=== PATIENT | female | born 1990 | race Caucasian/White ===

== ENCOUNTER 2017-01-18 11:23 | Emergency (ER) | payer MEDICAID ==
[2017-01-18] MEDS ORDERED: SULFAMETH/TRIMETH DS 800/160 MG TABLET PO STA (12:45)
[2017-01-18] MEDS ORDERED: PHENAZOPYRIDINE 100 MG TABLET PO STA (12:45)
[2017-01-18] MEDS ORDERED: SULFAMETH/TRIMETH DS 800/160 MG TABLET PO ONE (12:55)
[2017-01-18] MEDS ORDERED: PHENAZOPYRIDINE 100 MG TABLET PO ONE (12:55)
== END 2017-01-18 13:01 | disposition home or self-care (01) ==
DX: N12 Tubulo-interstitial nephritis, not specified as acute or chronic (principal); R03.0 Elevated blood-pressure reading, without diagnosis of hypertension
CPT/HCPCS: 81001; 81025; 87077; 87086; 87181; 99283; A9270

== ENCOUNTER 2017-08-04 10:04 | Emergency (ER) | payer MEDICAID ==
[2017-08-04 10:11] VITALS: BP 107/72
== END 2017-08-04 10:29 | disposition left against medical advice (07) ==
LOC: ED 10:04
DX: Z53.21 Procedure and treatment not carried out due to patient leaving prior to being seen by health care provider (principal)

== ENCOUNTER 2017-12-09 10:12 | Emergency (ER) | payer MEDICAID ==
[2017-12-09] MEDS ORDERED: SODIUM CHLORIDE 0.9% 1,000 ML IV ONE ×2 (10:43→11:28)
[2017-12-09] MEDS ORDERED: ONDANSETRON 4 MG/2 ML VIAL IVP STA (10:44)
[2017-12-09 10:52] LABS: BASOPHILS # (AUTO) 0.1 10^3/uL (0.0-0.1); EOSINOPHILS # (AUTO) 0.1 10^3/uL (0.0-0.7); EOSINOPHILS % (AUTO) 1.5 %; HGB - HEMOGLOBIN 13.9 g/dL (12.0-16.0); LYMPHOCYTES # (AUTO) 2.5 10^3/uL (1.5-3.5); MEAN CORPUSCULAR HEMOGLOBIN 31.6 pg (27.0-31.0); MEAN CORPUSCULAR HGB CONC 33.9 g/dL (32.0-36.0); MEAN CORPUSCULAR VOLUME 93.3 fL (81.0-99.0); MEAN PLATELET VOLUME 7.5 fL (7.9-10.8); MONOCYTES # (AUTO) 0.5 10^3/uL (0.0-1.0); MONOCYTES % (AUTO) 7.5 %; NEUTROPHILS # (AUTO) 3.7 10^3/uL (1.5-6.6); PLT - PLATELET COUNT 323 10^3/uL (130-450); WHITE BLOOD COUNT 6.8 x10^3/uL (4.8-10.8)
[2017-12-09 11:03] LABS: ALBUMIN 4.7 g/dL (3.2-5.5); ALBUMIN/GLOBULIN RATIO 1.4 (1.0-2.2); BILIRUBIN,TOTAL 0.5 mg/dL (0.2-1.0); CALCIUM 8.8 mg/dL (8.5-10.3); CREATININE 0.8 mg/dL (0.4-1.0)
[2017-12-09] MEDS ORDERED: PROMETHAZINE INJ 12.5 MG in SODIUM CHLORIDE 0.9% 50 ML IV STA (11:29)
--- NOTE | 2017-12-09 11:31 | ED Physician Documentation ---
PD HPI ABD PAIN - Stated complaint Stated Complaint: VOMITING - Chief complaint Chief Complaint: Abd Pain - History obtained from History obtained from: Patient - History of Present Illness Timing - onset: How many hours ago (2) Timing - details: Still present Quality: Cramping Location: All over / everywhere Associated symptoms: Nausea, Vomiting. No: Fever, Diarrhea, Dysuria Similar symptoms before: Has not had sx before - Additional information Additional information: The patient is a 27-year-old female who presents with vomiting and dry heaves that started after she arrived at work today. She was well last night and when she initially got up this morning. She reports generalized abdominal cramping pain. She denies diarrhea, fever, or dysuria. She has an IUD, and has not had a menstrual period for many years. She denies history of similar symptoms in the past. She has had no abdominal surgery. Review of Systems Constitutional: denies: Fever Ears: denies: Tinnitus/ringing Nose: denies: Congestion Throat: denies: Sore throat Cardiac: denies: Chest pain / pressure Respiratory: denies: Dyspnea, Cough GI: reports: Abdominal Pain, Nausea, Vomiting. denies: Diarrhea : reports: Control (IUD). denies: Dysuria Skin: denies: Rash Musculoskeletal: denies: Back pain Neurologic: denies: Focal weakness, Numbness, Headache PD PAST MEDICAL HISTORY - Past Medical History Cardiovascular: None Respiratory: None Neuro: None Endocrine/Autoimmune: None GI: None [employer]ES [employer]: None : None HEENT: None Psych: Depression, Anxiety Musculoskeletal: None Derm: None - Past Surgical History Past Surgical History: No - Present Medications Home Medications: Ambulatory Orders Medication Instructions Recorded Confirmed Promethazine [Phenergan] 25 - 50 mg PO Q6H PRN #10 tab 12/09/17 - Allergies Allergies/Adverse Reactions: Allergies Allergy/AdvReac Type Severity Reaction Status Date / Time No Known Drug Allergies Allergy Verified 12/09/17 10:21 - Social History Does the pt smoke?: No Smoking Status: Never smoker Does the pt drink ETOH?: No Does the pt have substance abuse?: No - Immunizations Immunizations are current?: Yes - POLST Patient has POLST: No PD ED PE NORMAL - Vitals Vital signs reviewed: Yes (Normal) - General General: Alert and oriented X 3, Well developed/nourished, Other (Dry heaving into an emesis bag when I enter the room.) - HEENT HEENT: Atraumatic, Moist mucous membranes, Pharynx benign - Neck Neck: Supple, no meningeal sign, No adenopathy - Cardiac Cardiac: RRR, No murmur - Respiratory Respiratory: No respiratory distress, Clear bilaterally - Abdomen Abdomen: Soft, No organomegaly, Other (Mild tenderness to palpation in the upper abdomen, without rebound tenderness or guarding.) - Back Back: No CVA TTP - Derm Derm: No rash - Extremities Extremities: No edema, No calf tenderness / cord - Neuro Neuro: Alert and oriented X 3, No motor deficit, No sensory deficit Results - Vitals Vitals: Vital Signs - 24 hr 12/09/17 12/09/17 12/09/17 10:18 12:19 14:13 Temperature 36.2 C L 38 C H Heart Rate 86 72 81 Respiratory 19 16 18 Rate Blood Pressure 105/71 100/64 100/68 O2 Saturation 99 100 97 12/09/17 15:23 Temperature Heart Rate 74 Respiratory 18 Rate Blood Pressure 110/68 O2 Saturation 98 Oxygen O2 Source Room air - Labs Labs: Laboratory Tests 12/09/17 12/09/17 12/09/17 10:30 10:30 13:35 WBC 6.8 RBC 4.40 Hgb 13.9 Hct 41.1 MCV 93.3 MCH 31.6 H MCHC 33.9 RDW 13.0 Plt Count 323 MPV 7.5 L Neut # 3.7 Lymph # 2.5 Sutter # 0.5 Eos # 0.1 Baso # 0.1 Absolute Nucleated RBC 0.01 Nucleated RBC % 0.1 Sodium 141 Potassium 4.1 Chloride 102 Carbon Dioxide 27 Anion Gap 12.0 BUN 10 Creatinine 0.8 Estimated GFR (MDRD) 85 L Glucose 107 H Calcium 8.8 Total Bilirubin 0.5 AST 24 ALT 19 Alkaline Phosphatase 44 Total Protein 8.0 Albumin 4.7 Globulin 3.3 Albumin/Globulin Ratio 1.4 Lipase 37 Urine Color YELLOW Urine Clarity CLEAR Urine pH 8.0 H Ur Specific [place] 1.010 Urine Protein NEGATIVE Urine Glucose (UA) NEGATIVE Urine Ketones NEGATIVE Urine Occult Blood NEGATIVE Urine Nitrite NEGATIVE Urine Bilirubin NEGATIVE Urine Urobilinogen 0.2 (NORMAL) Ur Leukocyte Esterase NEGATIVE Ur Microscopic Review NOT INDICATED Urine Culture Comments NOT INDICATED Urine HCG, Qual NEGATIVE PD MEDICAL DECISION MAKING - ED course Complexity details: reviewed results, re-evaluated patient, considered differential, d/w patient ED course: The patient's presentation is significant for vomiting with mild dehydration. Her gastrointestinal symptoms are most likely caused by viral gastroenteritis, although food poisoning is not completely excluded. CBC, chemistry panel, and urinalysis are unremarkable. The patient did develop a low-grade fever of 38.0 while in the emergency department. Treatment in the emergency department included administration of normal saline 2 L IV, Zofran 4 mg IV, Phenergan 12.5 mg IV, and Tylenol 650 mg orally. At the time of discharge she felt subjectively much improved, and reexamination reveals a benign abdomen. She is being discharged with a prescription for Phenergan. I discussed with her the expected course of illness, symptoms are treatment and outpatient follow -up, as well as potentially worrisome signs or symptoms that should prompt reevaluation in the emergency department. Departure - Departure Disposition: 01 Home, Self Care Clinical Impression: Dehydration, mild Vomiting Qualifiers: Vomiting type: unspecified Vomiting Intractability: non-intractable Nausea presence: with nausea Qualified Code(s): R11.2 - Nausea with vomiting, unspecified Condition: Stable Instructions: ED Nausea Vomiting Follow-Up: Nona Sarmiento ARNP [Primary Care Provider] - Prescriptions: Promethazine [Phenergan] 25 - 50 mg PO Q6H PRN #10 tab PRN Reason: Nausea / Vomiting Comments: You can use Phenergan as prescribed if needed for nausea. Drink plenty of fluids. Follow up with your primary physician within 1-2 weeks if not completely resolved. Return to the emergency department if persistent vomiting, increasing abdominal pain, recurrent dehydration, or otherwise worsening symptoms. Forms: Activity restrictions Discharge Date/Time: 12/09/17 15:23
[2017-12-09 13:46] LABS: BILIRUBIN,URINE NEGATIVE (NEGATIVE); GLUCOSE, URINE (UA) NEGATIVE (NEGATIVE); KETONES,URINE (UA) NEGATIVE (NEGATIVE); LEUKOCYTE ESTERASE, URINE NEGATIVE (NEGATIVE); NITRITE,URINE NEGATIVE (NEGATIVE); OCCULT BLOOD,URINE NEGATIVE (NEGATIVE); PROTEIN,URINE NEGATIVE (NEGATIVE); UROBILINOGEN,URINE 0.2 (NORMAL) E.U./dL (NORMAL)
[2017-12-09 13:49] LABS: CLARITY,URINE CLEAR (CLEAR); HCG UR QUAL NEGATIVE
[2017-12-09] MEDS ORDERED: ACETAMINOPHEN 325 MG TABLET PO STA (14:37)
[2017-12-09 15:25] VITALS: BP 110/68
== END 2017-12-09 15:23 | disposition home or self-care (01) ==
LOC: ED 10:12
DX: E86.0 Dehydration (principal); R11.2 Nausea with vomiting, unspecified
CPT/HCPCS: 36415; 80053; 81003; 81025; 83690; 85025; 96361; 96365; 96375; 99283; 99284; A9270; J7040; 81001; 87086

== ENCOUNTER 2023-10-26 07:15 | Outpatient (CLI) | payer OTHER ==
--- NOTE | 2023-10-26 10:37 | XRAY Report ---
PROCEDURE: Shoulder 3 View LT INDICATIONS: UNSPECIFIED STRAIN OF LEFT SHOULDER TECHNIQUE: 3 views of the shoulder were acquired. COMPARISON: None. FINDINGS: Bones: No fractures or dislocations. No suspicious bony lesions. Visualized ribs appear intact. Soft tissues: No suspicious soft tissue calcifications. The visualized lungs are within normal limi ts. IMPRESSION: No acute bony abnormality. If pain persists with conservative management, consider repeat x-ray in 10 -14 days or cross-sectional imaging. Reviewed by: Saji Branham MD on 10/26/2023 10:36 AM PST Approved by: Saji Branham MD on 10/26/2023 10:36 AM PST Station ID: [id number]
== END 2023-10-26 07:30 | disposition home or self-care (01) ==
LOC: DI.N 07:15
PROVIDERS: ATTEND Nurse Practitioner
DX: S46.912A Strain of unspecified muscle, fascia and tendon at shoulder and upper arm level, left arm, initial encounter (principal)